=== PATIENT | female | born 1945 | race Caucasian/White ===

== ENCOUNTER → 2018-11-24 | Outpatient (CLI) | payer OTHER | LOC: BMCIMAGING 14:30 | PROVIDERS: ATTEND Family Medicine | DX: Z13.820 Encounter for screening for osteoporosis (principal); M81.0 Age-related osteoporosis without current pathological fracture; E03.9 Hypothyroidism, unspecified; E55.9 Vitamin D deficiency, unspecified; Z78.0 Asymptomatic menopausal state ==